=== PATIENT | male | born 1985 | race Two or more races ===

== ENCOUNTER 2020-10-17 19:21 | Emergency (ER) | payer MEDICAID, OTHER ==
[~2020-10-17] VITALS: Ht 177.8 cm; Wt 122.5 kg
[2020-10-17] MEDS ORDERED: TETANUS-DIPTH-ACEL PERTUSSIS 0.5ML SYR Tdap IM ONE (21:45)
[2020-10-18] MEDS ORDERED: ACETAMINOPHEN 500 MG TAB PO ONE (01:30)
[2020-10-18] MEDS ORDERED: LIDOCAINE 1% HCL (LOCAL ANESTH.) INJ 20ML MDV ONE (01:36)
[2020-10-18 02:30] VITALS: BP 114/63
== END 2020-10-18 03:13 ==
LOC: EDBD 19:21 → ER 19:21
DX: S81.812A Laceration without foreign body, left lower leg, initial encounter (principal); M54.2 Cervicalgia; R51.9 Headache, unspecified; V43.52XA Car driver injured in collision with other type car in traffic accident, initial encounter; Y93.89 Activity, other specified; Y92.89 Other specified places as the place of occurrence of the external cause; Y99.8 Other external cause status
CPT/HCPCS: 12002; 70450; 70486; 71250; 72125; 99285; J2001; 90715